=== PATIENT | female | born 1980 | race Caucasian/White ===

== ENCOUNTER 2023-04-10 11:01 | Day surgery (SDC) | payer BC ==
[~2023-04-10] VITALS: Ht 162.6 cm; Wt 85.0 kg
[~2023-04-10 11:01] MED LIST: BUPR300T92 PO; CLON1TAB8 PO; CYCL-707 PO; NS 1,000 ML IV ONE; SEMA2.4P SC; ZOLP10TA2 PO
[2023-04-10] MEDS ORDERED: fentaNYL 100 MCG/2 ML INJECTION As Ordered ONE (11:30)
[2023-04-10] MEDS ORDERED: propofoL 200 MG/20 ML VIAL As Ordered ONE ×2 (11:33→12:17)
[2023-04-10] MEDS ORDERED: LIDOCAINE 2% 100MG/5ML SDV (FOR ANES.) As Ordered ONE (11:33)
[2023-04-10 12:26] VITALS: TEMP 96.8
[2023-04-10 12:46] VITALS: BP 113/62; O2SAT 100
== END 2023-04-10 13:11 | disposition home or self-care (01) ==
LOC: M OPP 11:01
PROVIDERS: ATTEND Internal Medicine Gastroenterology
DX: D12.4 Benign neoplasm of descending colon (principal); K64.8 Other hemorrhoids; K58.1 Irritable bowel syndrome with constipation; R19.4 Change in bowel habit; R11.0 Nausea; Z79.85 Long-term (current) use of injectable non-insulin antidiabetic drugs; Z79.891 Long term (current) use of opiate analgesic; Z79.899 Other long term (current) drug therapy; G47.30 Sleep apnea, unspecified
CPT/HCPCS: 43235; 45385; 88305; J3010